=== PATIENT | female | born 1945 | race Caucasian/White ===

== ENCOUNTER → 2018-02-16 | Outpatient (CLI) | payer OTHER ==
[~2018-02-16] MED LIST: ASA81 MG; AVAPRO75 MG; DICLOFENAC POTA50 MG PO; KENALOG-1010 MG/ML IJ; MOTRIN800 MG PO; PANTOPRAZOLE SO20 MG; PREMPRO 0.3 MG/1 TAB; SYNTHROID125 MCG; TOPROL XL25 M1; ULTRAM50 MG
== END | disposition home or self-care (01) ==
LOC: LAB 08:18
DX: D68.8 Other specified coagulation defects (principal); I10 Essential (primary) hypertension; E03.8 Other specified hypothyroidism; H11.31 Conjunctival hemorrhage, right eye; D50.8 Other iron deficiency anemias; D51.8 Other vitamin B12 deficiency anemias; D51.0 Vitamin B12 deficiency anemia due to intrinsic factor deficiency; D51.1 Vitamin B12 deficiency anemia due to selective vitamin B12 malabsorption with proteinuria; E06.3 Autoimmune thyroiditis

== ENCOUNTER 2018-03-02 10:07 | Outpatient (CLI) | payer OTHER | END 2018-03-02 10:16 | disposition home or self-care (01) | LOC: LAB 10:07 | DX: D68.8 Other specified coagulation defects (principal); I10 Essential (primary) hypertension; E03.8 Other specified hypothyroidism; H11.31 Conjunctival hemorrhage, right eye; D68.0 Von Willebrand disease ==

== ENCOUNTER → 2018-04-24 17:10 | Outpatient (CLI) | payer OTHER | END | disposition home or self-care (01) | LOC: RAD 17:10 | DX: M43.16 Spondylolisthesis, lumbar region (principal); M43.02 Spondylolysis, cervical region ==

== ENCOUNTER 2018-10-18 09:53 | Outpatient (CLI) | payer OTHER ==
[~2018-10-18] VITALS: Ht 152.4 cm; Wt 75.3 kg
== END 2018-10-18 10:15 | disposition home or self-care (01) ==
LOC: OFIC 805 09:53
DX: J06.9 Acute upper respiratory infection, unspecified (principal); B34.9 Viral infection, unspecified; R09.81 Nasal congestion; R05 Cough

== ENCOUNTER → 2020-03-06 | Outpatient (CLI) | payer OTHER ==
[~2020-03-06] MED LIST changes: +KENALOG-1010 MG/1 ML IJ; +NORFLEX100MG PO
== END | disposition home or self-care (01) ==
LOC: RAD 11:45
PROVIDERS: ATTEND Otolaryngology
DX: M19.071 Primary osteoarthritis, right ankle and foot (principal)

== ENCOUNTER 2021-10-22 10:28 | Emergency (ER) | payer OTHER ==
[~2021-10-22] VITALS: Ht 162.6 cm; Wt 75.3 kg
[2021-10-22] MEDS ORDERED: [UNRECOGNIZED DRUG - OTHER] (10:53)
[2021-11-05] MEDS ORDERED: SKELAXIN800 MG PO (11:23)
[2021-11-05] MEDS ORDERED: NABUMETONE750 MG PO (11:23)
== END 2021-10-22 16:14 | disposition home or self-care (01) ==
LOC: ER 10:28
DX: S00.83XA Contusion of other part of head, initial encounter (principal); S70.01XA Contusion of right hip, initial encounter; S40.011A Contusion of right shoulder, initial encounter; W18.30XA Fall on same level, unspecified, initial encounter; Y92.019 Unspecified place in single-family (private) house as the place of occurrence of the external cause; Z88.8 Allergy status to other drugs, medicaments and biological substances; Z88.4 Allergy status to anesthetic agent; Z88.5 Allergy status to narcotic agent; Z91.013 Allergy to seafood; Z86.79 Personal history of other diseases of the circulatory system

== ENCOUNTER 2022-04-26 14:48 | Outpatient (CLI) | payer OTHER ==
[~2022-04-26 14:48] MED LIST changes: +METHOCARBAMOL500 MG PO; +NABUMETONE750 MG PO; +SKELAXIN800 MG PO; +[UNRECOGNIZED DRUG - OTHER]
== END 2022-04-26 14:53 | disposition home or self-care (01) ==
LOC: TOM 14:48
PROVIDERS: ATTEND Internal Medicine
DX: I63.9 Cerebral infarction, unspecified (principal)

== ENCOUNTER 2022-05-23 10:46 | Outpatient (CLI) | payer OTHER | END 2022-05-23 10:56 | disposition home or self-care (01) | LOC: PPH VACUNA 10:46 | PROVIDERS: ATTEND Emergency Medicine Pediatric Emergency Medicine | DX: Z23 Encounter for immunization (principal) ==

== ENCOUNTER 2022-11-15 09:47 | Outpatient (CLI) | payer OTHER | END 2022-11-15 09:49 | disposition home or self-care (01) | LOC: NUCLEAR 09:47 | PROVIDERS: ATTEND Internal Medicine Cardiovascular Disease | DX: I82.403 Acute embolism and thrombosis of unspecified deep veins of lower extremity, bilateral (principal) ==

== ENCOUNTER → 2022-11-16 11:12 | Outpatient (CLI) | payer OTHER | END | disposition home or self-care (01) | LOC: LAB 11:12 | PROVIDERS: ATTEND Internal Medicine Cardiovascular Disease | DX: R01.1 Cardiac murmur, unspecified (principal) ==

== ENCOUNTER → 2022-11-16 | Outpatient (CLI) | payer OTHER | END | disposition home or self-care (01) | LOC: RAD 09:42 | PROVIDERS: ATTEND Internal Medicine Cardiovascular Disease | DX: I10 Essential (primary) hypertension (principal); S06.5X0A Traumatic subdural hemorrhage without loss of consciousness, initial encounter | CPT/HCPCS: 70551 ==

== ENCOUNTER 2022-11-28 13:37 | Outpatient (CLI) | payer OTHER | END 2022-11-28 13:45 | disposition home or self-care (01) | LOC: SONOGRAMA 13:37 | PROVIDERS: ATTEND Otolaryngology | DX: R22.1 Localized swelling, mass and lump, neck (principal); J45.998 Other asthma ==

== ENCOUNTER 2023-01-16 09:18 | Outpatient (CLI) | payer OTHER | END 2023-01-16 09:23 | disposition home or self-care (01) | LOC: LAB 09:18 | PROVIDERS: ATTEND Specialist | DX: E03.8 Other specified hypothyroidism (principal); E11.69 Type 2 diabetes mellitus with other specified complication; N25.81 Secondary hyperparathyroidism of renal origin; N39.9 Disorder of urinary system, unspecified; Z13.220 Encounter for screening for lipoid disorders; E11.21 Type 2 diabetes mellitus with diabetic nephropathy; R07.89 Other chest pain; M00.80 Arthritis due to other bacteria, unspecified joint; D64.89 Other specified anemias ==

== ENCOUNTER 2023-03-20 09:34 | Outpatient (CLI) | payer OTHER | END 2023-03-20 09:37 | disposition home or self-care (01) | LOC: LAB 09:34 | PROVIDERS: ATTEND Internal Medicine | DX: E03.8 Other specified hypothyroidism (principal); E11.65 Type 2 diabetes mellitus with hyperglycemia; E78.5 Hyperlipidemia, unspecified; I10 Essential (primary) hypertension; E55.9 Vitamin D deficiency, unspecified; E53.8 Deficiency of other specified B group vitamins ==

== ENCOUNTER 2023-09-20 10:38 | Outpatient (CLI) | payer OTHER ==
[~2023-09-20 10:38] MED LIST changes: +CELEBREX200MG PO
[2023-09-20 11:55] LABS: HEMATOCRIT 42.3 % (36.0-45.00); HEMOGLOBIN 14.5 g/dL (12.0-15.00); MEAN CORPUSCULAR HEMOGLOBIN 31.5 pg (27.00-32.0); MEAN CORPUSCULAR HGB CONC 34.2 g/dl (32.0-36.0); PLATELET COUNT 204 K/uL (150-450); RED CELL DISTRIBUTION WIDTH 14.3 % (11.5-14.5)
[2023-09-20 12:25] LABS: COL EPI 116 SECONDS (82-175)
[2023-09-20 13:12] LABS: PARTIAL THROMBOPLASTIN TIME 30.2 SECONDS (22.0-34.0); PROTHROMBIN TIME 10.5 SECONDS (9.0-11.5)
[2023-09-20 13:16] LABS: ALBUMIN 3.4 gm/dL (3.4-5.0); BILIRUBIN TOTAL 0.49 mg/dL (0.3-1.2); CHOL HDL RATIO 3.2 (0-5.0); CREATININE SERUM 0.76 mg/dL (0.55-1.02); GFR 73.99; GLOBULINA 3.2 G/DL (2.4-3.5); POTASSIUM 4.09 mEq/L (3.5-5.1); TOTAL PROTEIN 6.6 gm/dL (6.4-8.2)
[2023-09-20 13:41] LABS: FERRITIN 29.1 NG/ML (8-252); T4 FREE 1.7 NG/ML (0.76-1.46); TSH 0.32 uIU/mL (0.358-3.74)
[2023-09-20 14:04] LABS: MANUAL PLATELET COUNT 270
[2023-09-20 14:05] LABS: PLATELET ESTIMATE NORMAL (NORMAL)
[2023-09-20 14:47] LABS: FOLIC ACID > 20.00 ng/ml (4.78-20)
== END 2023-09-20 10:57 | disposition home or self-care (01) ==
LOC: LAB 10:38
PROVIDERS: ATTEND Internal Medicine Hematology & Oncology
DX: E03.8 Other specified hypothyroidism (principal); E11.65 Type 2 diabetes mellitus with hyperglycemia; E78.5 Hyperlipidemia, unspecified; I10 Essential (primary) hypertension; D51.1 Vitamin B12 deficiency anemia due to selective vitamin B12 malabsorption with proteinuria; D51.3 Other dietary vitamin B12 deficiency anemia; D68.8 Other specified coagulation defects; H11.31 Conjunctival hemorrhage, right eye; I73.9 Peripheral vascular disease, unspecified; D50.8 Other iron deficiency anemias; R79.9 Abnormal finding of blood chemistry, unspecified; R74.02 Elevation of levels of lactic acid dehydrogenase [LDH]; K76.89 Other specified diseases of liver; D51.0 Vitamin B12 deficiency anemia due to intrinsic factor deficiency; E06.3 Autoimmune thyroiditis; D69.1 Qualitative platelet defects; C50.919 Malignant neoplasm of unspecified site of unspecified female breast; R97.8 Other abnormal tumor markers; C25.9 Malignant neoplasm of pancreas, unspecified; C56.9 Malignant neoplasm of unspecified ovary; R97.1 Elevated cancer antigen 125 [CA 125]; R97.0 Elevated carcinoembryonic antigen [CEA]; Z88.5 Allergy status to narcotic agent; Z91.013 Allergy to seafood

== ENCOUNTER 2023-09-29 09:20 | Outpatient (CLI) | payer OTHER | END 2023-09-29 09:29 | disposition home or self-care (01) | LOC: TOM 09:20 | PROVIDERS: ATTEND Otolaryngology | DX: J32.3 Chronic sphenoidal sinusitis (principal); R22.1 Localized swelling, mass and lump, neck ==

== ENCOUNTER 2023-10-18 11:18 | Outpatient (CLI) | payer OTHER | END 2023-10-18 11:24 | disposition home or self-care (01) | LOC: SONOGRAMA 11:18 | PROVIDERS: ATTEND Otolaryngology | DX: M25.511 Pain in right shoulder (principal) ==

== ENCOUNTER 2023-12-18 10:01 | Outpatient (CLI) | payer OTHER | END 2023-12-18 10:03 | disposition home or self-care (01) | LOC: NUCLEAR 10:01 | PROVIDERS: ATTEND Internal Medicine | DX: I10 Essential (primary) hypertension (principal) ==

== ENCOUNTER 2025-06-23 14:04 | Outpatient (CLI) | payer OTHER | END 2025-06-23 14:08 | disposition home or self-care (01) | LOC: RAD 14:04 | PROVIDERS: ATTEND Internal Medicine | DX: M79.604 Pain in right leg (principal); M25.562 Pain in left knee; M25.561 Pain in right knee; M79.671 Pain in right foot; M25.551 Pain in right hip ==

== ENCOUNTER 2025-07-13 02:57 | Emergency (ER) | payer OTHER ==
[~2025-07-13] VITALS: Ht 162.6 cm; Wt 76.2 kg
[~2025-07-13 02:57] MED LIST changes: +VOLTAREN ARTHRI20 GM TOP
[2025-07-13] MEDS ORDERED: SYNTHROID88 MCG PO (03:07)
[2025-07-13] MEDS ORDERED: PROTONIX20 MG PO (03:07)
[2025-07-13] MEDS ORDERED: LOSARTAN POTASS50 MG PO (03:07)
[2025-07-13] MEDS ORDERED: METOPROLOL SUCC50 MG PO (03:07)
[2025-07-13] MEDS ORDERED: KETOROLAC TROMETHAMINE 60 MG VIAL IM STA (03:28)
[2025-07-13] MEDS ORDERED: DEXAMETHASONE SODIUM PHOSPHATE 4 MG/ML VIAL IM STA (03:28)
[2025-07-13] MEDS ORDERED: DEXAMETHASONE SODIUM PHOSPHATE 4 MG/ML VIAL ONE (03:40)
[2025-07-13] MEDS ORDERED: CLONIDINE HCL 0.1 MG TABLET PO ONE (03:40)
[2025-07-13] MEDS ORDERED: KETOROLAC TROMETHAMINE 60 MG VIAL IM ONE (03:40)
== END 2025-07-13 07:07 | disposition home or self-care (01) ==
LOC: ER
DX: G44.221 Chronic tension-type headache, intractable (principal); I10 Essential (primary) hypertension; Z88.4 Allergy status to anesthetic agent; Z88.5 Allergy status to narcotic agent; Z91.013 Allergy to seafood; Z91.018 Allergy to other foods
CPT/HCPCS: 96372; 99282; J1100; J1885

== ENCOUNTER 2025-07-16 11:31 | Outpatient (CLI) | payer OTHER ==
[~2025-07-16 11:31] MED LIST changes: +LOSARTAN POTASS50 MG PO; +METOPROLOL SUCC50 MG PO; +PROTONIX20 MG PO; +SYNTHROID88 MCG PO
== END 2025-07-16 11:34 | disposition home or self-care (01) ==
LOC: TOM 11:31
PROVIDERS: ATTEND Internal Medicine
DX: I63.9 Cerebral infarction, unspecified (principal)

== ENCOUNTER 2025-08-12 13:05 | Outpatient (CLI) | payer OTHER | END 2025-08-12 13:08 | disposition home or self-care (01) | LOC: RAD 13:05 | PROVIDERS: ATTEND Physical Medicine & Rehabilitation | DX: M17.11 Unilateral primary osteoarthritis, right knee (principal); W19.XXXA Unspecified fall, initial encounter; X58.XXXA Exposure to other specified factors, initial encounter; Y93.9 Activity, unspecified; Y92.9 Unspecified place or not applicable; Y99.9 Unspecified external cause status ==

== ENCOUNTER 2025-08-20 14:13 | Outpatient (CLI) | payer OTHER | END 2025-08-20 14:16 | disposition home or self-care (01) | LOC: MRI 14:13 | PROVIDERS: ATTEND Physical Medicine & Rehabilitation | DX: M25.561 Pain in right knee (principal); W19.XXXA Unspecified fall, initial encounter; X58.XXXA Exposure to other specified factors, initial encounter; Y93.9 Activity, unspecified; Y92.9 Unspecified place or not applicable; Y99.9 Unspecified external cause status | CPT/HCPCS: 73721 ==